=== PATIENT | male | born 1975 | race Caucasian/White ===

== ENCOUNTER 2022-09-11 08:01 | Emergency (ER) | payer OTHER, SELFPAY ==
[2022-09-11 08:05] VITALS: BP 185/101; PULSE 98; RESP 18; TEMP 36.5; O2SAT 98; BMI 29.2
[2022-09-11 08:20] VITALS: BP 158/93; PULSE 101; RESP 24; O2SAT 99
--- NOTE | 2022-09-11 08:21 | CRLHL7_ITS ---
For Patients: As a result of the Century Cures Act, medical imaging exams and procedure reports are released immediately into your electronic medical record. You may view this report before your referring provider. If you have questions, please contact your health care provider. INDICATION: Short of breath TECHNIQUE: Chest 2 views. COMPARISON: October 03, 2018 FINDINGS: Cardiovascular and mediastinum: Heart size and vasculature are normal in caliber and appearance. Lungs and pleural spaces: Patchy atelectasis in the lung bases. Otherwise, no evidence of focal consolidation. No sign of pleural effusion. No pneumothorax. Bones and soft tissues: No significant findings. IMPRESSION: Patchy atelectasis in the lung bases. Otherwise, no evidence of focal consolidation or acute cardiopulmonary process. Dictated by Brooks Suárez MD @ 09/11/2022 9:16:38 AM (Electronically Signed)
--- NOTE | 2022-09-11 08:23 | ED.CHESTPAIN ---
HPI - Chest Pain General Chief Complaint: Chest Pain Stated Complaint: Chest pain Time Seen by Provider: 09/11/22 08:04 History of Present Illness HPI narrative: This 47-year-old male comes in because of chest pain that began about 30 minutes prior to arrival. He states that he was asleep and awoke with some coughing and then had pain on the left side of his chest into his left arm. He reports some shortness of breath but arrives with normal oximetry. He did have some lightheadedness. He did take a baby aspirin. Prior to this he has been in good health and does not report any exercise intolerance. Currently his pain is gone. He did not have any nausea, vomiting, or diaphoresis. He does not report any leg pain or swelling. Related Data Home Medications Medication Instructions Recorded Confirmed aspirin 81 mg tablet,delayed 81 mg PO DAILY 09/11/22 09/11/22 release gabapentin 300 mg capsule 300 mg PO BID 09/11/22 09/11/22 metformin 500 mg tablet,extended mg PO 09/11/22 release 24 hr Allergies Allergy/AdvReac Type Severity Reaction Status Date / Time ibuprofen [From Advil] Allergy Verified 09/11/22 08:10 Review of Systems Status of ROS Reports: 10 or more systems reviewed and unremarkable except as noted in History and below Narrative Constitutional: No fevers, no weight gain or loss. Eyes: No discharge. No vision changes. HENT: No congestion, no sore throat, no ear pain. Cardiovascular: No chest pain, no palpitations. Respiratory: He reports shortness of breath. He did have some coughing this morning. Gastrointestinal: No abdominal pain, no vomiting, no diarrhea. Genitourinary: No dysuria, no hematuria. Musculoskeletal: Normal range of motion. Skin: No rashes, no pruritis. Neurological: No dizziness, weakness, sensory change, speech change. Endo/Heme/Allergies: No bruising or bleeding. No polydipsia. Pysch: no suicidality, no anxiety, no insomnia. All other systems reviewed and are negative. PFSH PFS Social History Smoking Status: Never smoker How often do you have a drink containing alcohol: 2-3 times a week How often do you have six or more drinks on one occasion: Never AUDIT-C Alcohol total score: 3 Non-prescribed substance use: denies use Exam Narrative Exam Narrative: Constitutional: Well-developed, well-nourished, no acute distress. HEENT: Normocephalic, atraumatic. Neck: Normal range of motion. Nontender. Supple. Heart: Regular. No murmurs. Normal rate. Intact distal pulses. Lungs: Clear to auscultation. No chest discomfort. No wheezes, rhonchi, or rales. Abdomen: Normal bowel sounds. Nontender. No rebound tenderness. Genitalia: Deferred. Back: No midline tenderness. Normal range of motion. Extremities: Normal range of motion. No injury. Skin: Intact. No rash. Warm. No erythema or pallor. Neurologic: No altered sensation. No weakness. Alert and oriented. Psychiatric: No suicidality. No anxiety or depression. No insomnia. Nursing notes and vitals signs are reviewed. Const Vital Signs, click to edit/add: Vital Signs - 24 hr 09/11/22 08:05 09/11/22 08:20 09/11/22 09:00 Temperature 97.7 F Pulse Rate [Right Pulse Oximeter] 98 101 H 86 Respiratory Rate 18 24 24 Blood Pressure [Right Upper Arm] 185/101 H 158/93 H 158/99 H Pulse Oximetry 98 99 98 Oxygen Delivery Method Room Air Room Air Room Air Course Vital Signs Vital signs: Initial Vital Signs Temperature 97.7 F 09/11/22 08:05 Temperature Source Temporal Artery Scan 09/11/22 08:05 Pulse Rate 98 09/11/22 08:05 Respiratory Rate 18 09/11/22 08:05 Blood Pressure 185/101 H 09/11/22 08:05 Blood Pressure Mean 129 09/11/22 08:05 Blood Pressure Position Sitting 09/11/22 08:05 Pulse Oximetry 98 09/11/22 08:05 Oxygen Delivery Method Room Air 09/11/22 08:05 Vital Signs Temperature 97.7 F 09/11/22 08:05 Pulse Rate 98 09/11/22 08:05 Respiratory Rate 18 09/11/22 08:05 Blood Pressure 185/101 H 09/11/22 08:05 Pulse Oximetry 98 09/11/22 08:05 Oxygen Delivery Method Room Air 09/11/22 08:05 Temperature 97.7 F 09/11/22 08:05 Pulse Rate 86 09/11/22 09:00 Respiratory Rate 24 09/11/22 09:00 Blood Pressure 158/99 H 09/11/22 09:00 Pulse Oximetry 98 09/11/22 09:00 Oxygen Delivery Method Room Air 09/11/22 09:00 MDM - Chest Pain MDM Narrative Medical decision making narrative: This patient comes in reporting onset of chest pain and states that he had feelings of panic or anxiety. Currently he is not having any pain and has normal vital signs. This could have been triggered by his anxiety or panic symptoms. EKG and lab results along with chest x-ray returned with reassuring findings. It is noted that his blood glucose is elevated and suspicious for diabetes. I did inform him of this and advised him to follow-up with his primary physician for further evaluation and appropriate treatment. Lab Data Labs: Lab Results 09/11/22 09/11/22 09/11/22 Range/Units 08:22 08:25 08:35 WBC 6.25 (4.50-11.00) K/uL RBC 5.34 (4.30-5.90) m/uL Hgb 16.0 (13.5-17.5) gm/dL Hct 45.4 (37.0-53.0) % MCV 85 (80-100) fL MCH 30 (26-34) pg MCHC 35 (32-36) gm/dL RDW Coeff of Dov 11.7 (11.5-15.5) % Plt Count 281 (140-440) K/uL Neut % (Auto) 66.5 (42.0-72.0) % Lymph % (Auto) 24.6 (20-44) % Charlotte % (Auto) 6.2 (0.0-11.0) % Eos % (Auto) 1.8 (0.0-7.0) % Baso % (Auto) 0.6 (0.0-3.0) % Neut # (Auto) 4.15 (1.7-7.0) K/uL Lymph # (Auto) 1.54 (0.90-2.90) K/uL Charlotte # (Auto) 0.40 (0.00-0.90) K/UL Eos # (Auto) 0.11 (0.00-0.50) K/uL Baso # (Auto) 0.04 (0.00-0.30) K/uL D-Dimer Quant (PE/DVT) < 0.27 (0.00-0.50) ug/ml Sodium 133 L (135-149) mmol/L Potassium 3.6 (3.6-5.1) mmol/L Chloride 102 (96-114) mmol/L Carbon Dioxide 23 (20-32) mmol/L BUN 13 (5-24) mg/dL Creatinine 0.5 (0.5-1.5) mg/dL Estimated Creat Clear 149.64 Estimated GFR 125 ml/min Glucose 279 H (60-115) mg/dL Calcium 8.7 (8.4-10.6) mg/dL SARS-CoV-2 (PCR) Negative SARS-CoV-2 (Negative) Influenza Type A (PCR) Negative PCR FLU A (Negative) Influenza Type B (PCR) Negative PCR FLU B (Negative) RSV (PCR) Negative PCR RSV (Negative) POC Troponin I 0.00 L (0.01-0.04) ng/ml Imaging Data Chest x-ray: Radiologist's impression: Patchy atelectasis in the lung bases. Otherwise, no evidence of focal consolidation or acute cardiopulmonary process. ECG Data Attestation: I personally reviewed and interpreted this ECG as follows: Interpretation: Normal sinus rhythm. Rate is 97 beats per minute. There are no ST or T-wave abnormalities. Discharge Plan Discharge Clinical Impression: Anxiety, Atypical chest pain Patient Disposition: Home, Self-Care Condition: Improved Additional Instructions: Follow-up with primary physician to recheck blood glucose. Return if worsening. Prescriptions: No Action aspirin 81 mg tablet,delayed release (DR/EC) 81 mg PO DAILY gabapentin 300 mg capsule 300 mg PO BID metformin 500 mg tablet extended release 24 hr PO Follow Up/Referrals: Francisco J Oconnor MD [Primary Care Provider] - Stand Alone Forms: [employer] [facility] Info Instructions
[2022-09-11 08:46] LABS: Basophils Absolute Auto 0.04 K/uL (0.00-0.30); Basophils Percent Auto 0.6 % (0.0-3.0); Eosinophils Absolute Auto 0.11 K/uL (0.00-0.50); Eosinophils Percent Auto 1.8 % (0.0-7.0); Hematocrit 45.4 % (37.0-53.0); Immature Granulocytes Abs Auto 0.02 K/uL (0.00-0.30); Immature Granulocytes Pct Auto 0.3 %; Lymphocytes Absolute Auto 1.54 K/uL (0.90-2.90); Lymphocytes Percent Auto 24.6 % (20-44); Mean Corpuscular HGB Conc 35 gm/dL (32-36); Mean Corpuscular Hemoglobin 30 pg (26-34); Mean Corpuscular Volume 85 fL (80-100); Monocytes Percent Auto 6.2 % (0.0-11.0); Neutrophils Absolute Auto 4.15 K/uL (1.7-7.0); Neutrophils Percent Auto 66.5 % (42.0-72.0); Platelet Count* 281 K/uL (140-440); RDW Coefficient of Variation % 11.7 % (11.5-15.5); Red Blood Count 5.34 m/uL (4.30-5.90); White Blood Count* 6.25 K/uL (4.50-11.00)
[2022-09-11 08:47] LABS: Slide Review Reflex No
[2022-09-11 08:59] LABS: Chloride* 102 mmol/L (96-114); Potassium* 3.6 mmol/L (3.6-5.1); Sodium* 133 mmol/L (135-149)
[2022-09-11 09:00] VITALS: BP 158/99; PULSE 86; RESP 24; O2SAT 98
[2022-09-11 09:02] LABS: Calcium* 8.7 mg/dL (8.4-10.6); Creatinine* 0.5 mg/dL (0.5-1.5); Est. Creatinine Clearance* 149.64; Estimated Glomerular Filt Rate 125 ml/min
[2022-09-11 09:07] LABS: D Dimer Quantitative* < 0.27 ug/ml (0.00-0.50)
[2022-09-11] MEDS: ASPIRIN 81 MG TAB.CHEW 324 MG PO (09:09)
[2022-09-11 09:17] LABS: PCR FLU A Negative PCR FLU A (Negative); PCR FLU B Negative PCR FLU B (Negative); PCR RSV Negative PCR RSV (Negative)
[2022-09-11 09:21] LABS: SARS PCR* Negative SARS-CoV-2 (Negative)
[2022-09-11 09:21] LABS: Carbon Dioxide* 23 mmol/L (20-32)
[2022-09-11 09:22] LABS: Blood Urea Nitrogen* 13 mg/dL (5-24); Glucose* 279 mg/dL (60-115)
== END 2022-09-11 09:57 | disposition home or self-care (01) ==
PROVIDERS: Emergency Provider Emergency Medicine Emergency Medical Services; PCP Family Medicine
DX: R07.89 Other chest pain (principal); F41.9 Anxiety disorder, unspecified
CPT/HCPCS: 36415; 71046; 80048; 84484; 85025; 85379; 87502; 87634; 87635; 93005; 99284; 99285; A9270

== ENCOUNTER 2023-12-31 12:29 | Outpatient (CLI) | payer OTHER, SELFPAY ==
--- OUTSIDE RECORDS SUMMARY | 2023-12-31 12:32 | XMS_ITS | Clinical Summary ---
Author Organization [facility] Address [place], [place] [address] Care Team Providers Care Educational Paraprofessional Name Role Phone Unavailable Primary Care Provider Unavailabl e Allergies Active Allergy Reactions Criticality Noted Date Comments Ibuprofen Rash 08/12/2008 Medications Medication Sig Dispensed Refills Start Date End Date Status ASPIRIN 81 MG TAB, DELAYED RELEASE take 1 tablet (81 mg) by oral route once daily 0 10/09/2008 Active simvastatin (ZOCOR) 20 mg tabletIndications:Mix ed hyperlipidemia Take 1 tablet by mouth once daily. 90 tablet 3 07/12/2013 Active metFORMIN (GLUCOPHAGE) 1,000 mg tabletIndications:Julia betes type 2, uncontrolled Take 1 tablet by mouth 2 times daily with meals. 200 tablet 3 07/12/2013 Active lisinopril (PRINIVIL; ZESTRIL) 10 mg tabletIndications:HTN (hypertension) Take 1 tablet by mouth once daily. New medication today. 90 tablet 3 07/12/2013 Active glipiZIDE (GLUCOTROL XL) 5 mg Extended-Release tabletIndications:Julia betes type 2, uncontrolled Take 1 tablet by mouth once daily before a meal. 100 tablet 3 07/12/2013 Active hydrochlorothiazide (HCTZ) 25 mg tablet Take 1 tablet by mouth once daily. 0 09/05/2014 Active cyclobenzaprine (FLEXERIL) 10 mg tabletIndications:Bhavani k muscle spasm Take 1 tablet by mouth at bedtime. 30 tablet 0 09/05/2014 Active enalapril (VASOTEC) 5 mg tablet Take 5 mg by mouth once daily. 06/13/2019 Active ibuprofen (ADVIL; MOTRIN) 600 mg tabletIndications:Pir iformis syndrome of left side Take 1 tablet by mouth every 6 hours if needed for Pain. Maximum of 3200 mg in 24 hours. 30 tablet 08/02/2019 Active cyclobenzaprine (FLEXERIL) 5 mg tabletIndications:Pir iformis syndrome of left side Take 1 tablet by mouth at bedtime if needed for Muscle Spasm. 10 tablet 08/02/2019 Active Active Problems Problem Noted Date Diagnosed Date Scoliosis 08/01/2012 Microalbuminuria 10/10/2008 Diabetes mellitus type II 08/19/2008 Overview: a system change updated this record. This will not affect patient care or billing. This comment can be deleted. Mixed hyperlipidemia 08/19/2008 HTN (hypertension) 08/19/2008 Overview: Updated by system to replace inactive record Encounters Date Type Department Care Team Description 11/22/2023 Lab Requisition [facility] [address] [place] [address] Diane Collado NP from Last 3 Months Immunizations Name Administration Dates Next Due Tdap 07/12/2013 Family History Medical History Relation Name Comments Diabetes Father Diabetes Mother Relation Name Status Comments Father Mother Social History Tobacco Use Types Packs/Day Years Used Date Smoking Tobacco: Never Smokeless Tobacco: Never Tobacco Cessation:Counseling Given: Yes Alcohol Use Standard Drinks/Week Comments No 0 (1 standard drink = 0.6 oz pur e alcohol) PHQ-2 Answer Date Recorded PHQ-2 Score 0 08/02/2019 Social Connections Answer Date Recorded Frequency of Communication with Friends and Fami ly Not on file 06/19/2021 Financial Resource Strain Answer Date R ecorded Difficulty of Paying Living Expenses Not on file 06/19/2021 Difficulty of Paying Living Expenses Not on file 06/19/2021 Sex and Gender Information Value Date Recorded Sex Assigned at Not on file Gender Identity Not on file Sexual Orientation Not on file Obstetrics History Last Filed Vital Signs Vital Sign Reading Time Taken Comments Blood Pressure 184/106 08/02/2019 8:42 AM SUPPORT ANALYST Pulse 85 08/02/2019 8:40 AM SUPPORT ANALYST Temperature 36.6 ??C (97.8 ??F) 10/28/2016 3:00 PM CD T Respiratory Rate - - Oxygen Saturation 98% 08/02/2019 8:40 AM SUPPORT ANALYST Inhaled Oxygen Concentration - - Weight 75.2 kg (165 lb 11.2 oz) 08/02/2019 8:40 AM SUPPORT ANALYST Height 157 cm (5' 1.81) 10/28/2016 3:00 PM CDT Body Mass Index 30.49 10/28/2016 3:00 PM CDT Plan of Treatment Health Maintenance Due Date Last Done Comments HIV for age 15-65 1988 Hepatitis C screening for age 18-79 1991 BMI (ht and wt on same day) for age 18+ 10/28/2017 10/28/2016 Colonoscopy through age 75 2018 Depression screening for age 12+ 08/02/2020 08/02/2019 COVID-19 vaccine series ( - 2022- season) 2023 Zoster (shingles) series for age 50+ (1 of 2) 2023 Tetanus booster 07/12/2023 07/12/2013 Influenza for age 50-64 02/18/2024 Lipids for age 45-75 11/21/2028 11/22/2023, 08/19/2014, 07/12/2013, Additional history exists Tdap Completed 07/12/2013 Pneumococcal series for age 6-64 Aged Out No longer eligible based on patient's age to complete this topic Procedures Procedure Name Priority Date/Time Associated Diagnosis Comments ALT (SGPT) Routine 11/22/2023 11:46 AM CDT LIPID PANEL Routine 11/22/2023 11:46 AM CDT TSH Routine 11/22/2023 11:46 AM CDT BASIC METABOLIC PANEL Routine 11/22/2023 11:46 AM CDT HEMOGLOBIN A1C Routine 11/22/2023 11:46 AM CDT from Last 3 Months Results * TSH (11/22/2023 11:46 AM CDT) TSH 1.24 0.27 - 4.20 uIU/mL 11/23/2023 1:38 PM CDT [facility] Blood BLOOD SPECIMEN / Unknown 11/22/2023 11:46 AM CDT 11/23/2023 1:01 PM CDT Narrative [facility] - 11/23/2023 1:38 PM CDT In Adults, TSH values between 5.00 and 10.00 uIU/ml do not necessarily indicate the presence of Hypothyroidism. Correlation with clinical findings such as presence of goiter and/or Thyroperoxidase (TPO) Antibody may be helpful. For more information please refer to ESTHER 2004; 291: 228-238. Diane Collado NP CHEMISTRY Performing Organization Address [facility] Co de Phone Number [facility] [address] [place] [address], * ALT (SGPT) (11/22/2023 11:46 AM CDT) ALT (SGPT) 50 10 - 50 IU/L 11/23/2023 1:[address] [facility] Blood BLOOD SPECIMEN / Unknown 11/22/2023 11:46 AM CDT 11/23/2023 1:01 PM CDT Diane Collado NP CHEMISTRY Performing Organization Address [facility] de Phone Number [facility] [address] [place] [address], * (ABNORMAL) HEMOGLOBIN A1C MONITORING (POCT) (11/22/2023 11:46 AM CDT) HEMOGLOBIN A1C MONITORING (POCT) 12.6(H) <=6.4 % 11/23/2023 2:23 PM CDT [facility] Blood BLOOD SPECIMEN / Unknown 11/22/2023 11:46 AM CDT 11/23/2023 1:01 PM CDT Narrative [facility] - 11/23/2023 2:23 PM CDT ? (<=6.9%) ? Indicates good control ? (7.0% to 7.9%) ? Indicates fair control ? (>=8.0%) ? Indicates poor control ?? NOTE: ??These thresholds are guidelines and ?individual targets may vary. Falsely low levels may be seen with: Recent Transfusion, Recent Significant Blood Loss, Hemolytic Diseases, or Falsely elevated levels may be seen with: Untreated Anemias, Splenectomy ? Diane Collado NP CHEMISTRY [facility] [address] [place] [address], [place] * LIPID PANEL (11/22/2023 11:46 AM CDT) [facility] CHOLESTEROL,TOTAL 158 100 - 199 mg/dL 11/23/2023 1:38 PM CDT [facility] Comment: Cholesterol, Total Reference Ranges Desirable <200 mg/dL Borderline 200-239 mg/dL High >=240 mg/dL TRIGLYCERIDES 137 <150 mg/dL 11/23/2023 1:38 PM CDT [facility] HDL CHOLESTEROL 44 >40 mg/dL 1:38 PM CDT [facility] NON-HDL CHOLESTEROL 114 <145 mg/dl 11/23/2023 1:38 PM CDT [facility] CHOL/HDL RATIO 3.59 <4.50 11/23/2023 1:38 PM CDT [facility] LDL CHOLESTEROL 87 <=130 mg/dL 11/23/2023 1:38 PM CDT [facility] VLDL CHOLESTEROL 27 <=30 mg/dL 11/23/2023 1:38 PM CDT [facility] PROVIDER ORDERED STATUS RANDOM 11/23/2023 1:38 PM CDT [facility] Blood BLOOD SPECIMEN / Unknown 11/22/2023 11:46 AM CDT 11/23/2023 1:01 PM CDT Diane Collado NP CHEMISTRY [facility] [address] [place] [address] * (ABNORMAL) BASIC METABOLIC PANEL (11/22/2023 11:46 AM CDT) SODIUM 136 136 - 145 mmol/L 11/23/2023 1:38 PM CDT [facility] POTASSIUM 4.2 3.5 - 5.1 mmol/L 11/23/2023 1:38 PM CDT [facility] CHLORIDE 102 98 - 107 mmol/L 11/23/2023 1:38 PM CDT [facility] CO2,TOTAL 24 22 - 29 mmol/L 11/23/2023 1:38 PM CDT [facility] ANION GAP 10 5 - 18 11/23/2023 1:38 PM CDT [facility] GLUCOSE 388(H) 70 - 99 mg/dL 11/23/2023 1:38 PM CDT [facility] CALCIUM 9.2 8.6 - 10.0 mg/dL 11/23/2023 1:38 PM CDT [facility] BUN 12 6 - 20 mg/dL 11/23/2023 1:38 PM T [facility] CREATININE 0.71 0.70 - 1.20 mg/dL 11/23/2023 1:38 PM CDT [facility] BUN/CREAT RATIO 17 10 - 20 1:38 PM T [facility] eGFR >90 >90 mL/min/1.7 3m2 11/23/2023 1:38 PM T [facility] Comment:As of 2021, eG FR is calculated by the CKD-EPI creatinine equation without race adjustment. ??eGFR can be influenced by muscle mass, exercise, and diet. ??The reported eGFR is an estimation only and is only applicable if the renal function is stable. Blood BLOOD SPECIMEN / Unknown 11/22/2023 11:46 AM CDT 11/23/2023 1:01 PM CDT Diane Collado NP CHEMISTRY [facility] [address] [place] [address], [place] from Last 3 Months
[2023-12-31 13:08] LABS: Fecal Occult Blood* Negative (Negative)
== END 2023-12-31 12:30 | disposition home or self-care (01) ==
LOC: LAB 12:30
PROVIDERS: Visit Provider Nurse Practitioner Family
DX: Z12.11 Encounter for screening for malignant neoplasm of colon (principal)
CPT/HCPCS: 82270